=== PATIENT | female | born 1935 | race Caucasian/White ===

== ENCOUNTER → 2016-09-24 | Outpatient (CLI) | payer MEDICARE, MEDICAID ==
[~2016-09-24] MED LIST: ACET-2161 PO; AMLO10TA4 PO; ARIP15TA2; BUPR75TA8 PO; DOCU-168 PO; DONE10TA21 PO; ENAL10TA PO; FAMO1TAB31 PO CHEW; FENT1PAT66 TOP; FURO20TA4 PO; FURO40TA70 PO; GABA-305 PO; HYDR-3989 PO; HYDR1TAB82 PO; LOPE2TAB24 PO; LORA0.5T86 PO; MULT-806 PO; OMEP20CA81 PO; P-EP-93 PO; SERT-88 PO; TRAZ-170 PO; [UNRECOGNIZED DRUG - CODE] PO
== END ==
LOC: NEU 10:20
PROVIDERS: ATTEND Family Medicine Sports Medicine
DX: G62.89 Other specified polyneuropathies (principal)
CPT/HCPCS: 95886; 95910

== ENCOUNTER 2016-09-26 08:11 | Day surgery (SDC) | payer MEDICARE, MEDICAID ==
--- NOTE | 2016-09-25 12:38 | NUR ---
NN PT'S SON/DPOA REQUESTS THAT SOMEONE CALL HIM WITH THE RESULTS OF BIOPSIES TOMORROW. HIS NUMBER IS .
[~2016-09-26] VITALS: Ht 157.5 cm; Wt 74.5 kg
[2016-09-26] VITALS (15 sets, daily range): BP systolic 109–183; BP diastolic 51–74; PULSE 51–66; RESP 14–18; TEMP 98.3–98.4; O2SAT 92–95; Ht 157.5 cm; Wt 74.5 kg
[~2016-09-26 08:11] MED LIST changes: -ACET-2161 PO; -BUPR75TA8 PO; +CEFAZOLIN 1 GRAM INJECTION IV ONE; -FENT1PAT66 TOP; -FURO40TA70 PO; -HYDR-3989 PO; +LIDOCAINE 1% (10mg/ml) 2ml SDV INJ ONE; +LR 1,000 ML IV SCH; -P-EP-93 PO
--- OUTSIDE RECORDS SUMMARY | 2016-09-26 08:17 | XMS REPORT | Referral Summary ---
Author Author Via R[facility], [facility] [place] [facility] Address Unknown Phone Unavailable Encounter Date(s): 03/22/15 - 03/22/15 Via RACQUEL [facility]as [facility], [address] [place], [place] [address] Discharge Disposition: 01-Home or Self Care Attending Physician: Julian Bae MD Admitting Physician: Julian Bae MD Vital Signs No data available for this section Problem List No data available for this section Allergies, Adverse Reactions, Alerts No data available for this section Medications amLODIPine 10 mg oral tablet 1 tabs, Oral, Daily, # 30 tabs, 0 Refill(s) Start Date: 03/29/14 Status: Ordered Colace 100 mg oral capsule 1 caps, Oral, BID, as needed for constipation, # 20 caps, 0 Refill(s) Start Date: 03/29/14 Status: Ordered divalproex sodium 250 mg oral tablet, extended release 3 tabs, Oral, Daily, 0 Refill(s) Start Date: 03/29/14 Status: Ordered donepezil 10 mg oral tablet 1 tabs, Oral, Bedtime (once a day), # 30 tabs, 0 Refill(s) Start Date: 03/29/14 Status: Ordered Duragesic-50 transdermal film, extended release 1 patches, Topical, q72hr, Fax to [facility] [phone], # 10 patches, 0 Refill( s) Start Date: 08/15/15 Status: Ordered Elocon 0.1% topical cream 1 porsha, Topical, Daily, # 15 g, 1 Refill(s), Pharmacy: [facility] Start Date: 06/12/14 Status: Ordered enalapril 10 mg oral tablet 1 tabs, Oral, BID, 0 Refill(s) Start Date: 03/29/14 Status: Ordered furosemide 20 mg oral tablet 1 tabs, Oral, Daily, # 30 tabs, 0 Refill(s) Start Date: 03/29/14 Status: Ordered gabapentin 600 mg oral tablet 1 tabs, Oral, TID, # 90 tabs, 0 Refill(s) Start Date: 03/29/14 Status: Ordered Guaiatussin AC 10 mg-100 mg/5 mL oral syrup 5 mL, Oral, q4hr, as needed for cough, 0 Refill(s) Start Date: 03/29/14 Status: Ordered ibuprofen 200 mg, Oral, q4hr, as needed for pain, 2 tabs, 0 Refill(s) Start Date: 03/29/14 Status: Ordered LORazepam 0.5 mg oral tablet 0.5 mg 1 tabs, Oral, BID, May also take 1 tab [address] Schulte [phone], # 80 tabs, 0 Refill(s) Start Date: 08/01/15 Status: Ordered LORazepam 0.5 mg oral tablet 0.25 mg 0.5 tabs, Oral, BID, patient can also take 1 tab BID PRN joe [phone], # 60 tabs, 1 Refill(s) Start Date: 08/01/15 Status: Ordered Maalox Advanced Maximum Strength 30 mL, Oral, q4hr, prn, 0 Refill(s) Start Date: 03/29/14 Status: Ordered MiraLax oral powder for reconstitution 17 g, Oral, Daily, dissolve in water before taking, # 255 g, 0 Refill(s) Start Date: 03/29/14 Status: Ordered mirtazapine 15 mg oral tablet 1 tabs, Oral, Bedtime (once a day), # 30 tabs, 0 Refill(s) Start Date: 03/29/14 Status: Ordered multivitamin 1 tabs, Oral, Daily, 0 Refill(s) Start Date: 03/29/14 Status: Ordered Withee 5 mg-325 mg oral tablet 1 tabs, Oral, TID, fax to Joe, # 90 tabs, 0 Refill(s) Start Date: 03/27/15 Status: Ordered Withee 5 mg-325 mg oral tablet 1 tabs, Oral, TID, as needed for pain, JOE [phone], # 90 tabs, 0 Refill(s) Start Date: 08/01/15 Status: Ordered [place] 5 mg-325 mg oral tablet 1 tabs, Oral, TID, JOE, # 90 tabs, 0 Refill(s) Start Date: 06/25/15 Status: Ordered nystatin 100,000 units/g topical cream 1 porsha, Topical, BID, # 15 g, 0 Refill(s) Start Date: 03/29/14 Status: Ordered omeprazole 20 mg oral delayed release tablet 1 tabs, Oral, Daily, 0 Refill(s) Start Date: 03/29/14 Status: Ordered Refresh 1 drops, Eye-Both, QID, prn, 0 Refill(s) Start Date: 03/29/14 Status: Ordered sertraline 100 mg oral tablet 1 tabs, Oral, Daily, # 30 tabs, 0 Refill(s) Start Date: 03/29/14 Status: Ordered Tums 500 mg, Chewed, TID, prn, 0 Refill(s) Start Date: 03/29/14 Status: Ordered Results No data available for this section Immunizations No data available for this section Procedures Procedure Date Related Diagnosis Body Site Excision, malignant lesion including margins, 03/22/15 trunk, arms, or legs; excised diameter 0.6 to 1.0 cm.. Social History No data available for this section Assessment and Plan No data available for this section
--- OUTSIDE RECORDS SUMMARY | 2016-09-26 08:17 | XMS REPORT | Referral Summary ---
Author Author [facility], [facility] Address Unknown Phone Unavailable Encounter Date(s): 02/22/15 - 02/22/15 Via RACQUEL Canas [facility], [address] [place], [place] [address] Discharge Disposition: 01-Home or Self Care Attending [...] release 1 patches, Topical, q72hr, Fax to [facility] [phone], # 10 patches, 0 Refill( s) Start Date: 08/15/15 Status: Ordered Elocon 0.1% topical cream 1 porsha, Topical, Daily, # 15 g, 1 Refill(s), Pharmacy: [facility] Start Date: 06/12/14 Status: Ordered enalapril [...] tab [address] Schulte [phone], # 80 tabs, 0 Refill(s) Start Date: 08/01/15 Status: Ordered LORazepam 0.5 mg oral tablet 0.25 mg 0.5 tabs, Oral, BID, patient can also take 1 tab BID PRN joe [phone], # 60 tabs, 1 Refill(s) Start Date: [...] 0 Refill(s) Start Date: 03/29/14 Status: Ordered [place] 5 mg-325 mg oral tablet 1 tabs, Oral, TID, fax to Joe, # 90 tabs, 0 Refill(s) Start Date: 03/27/15 Status: Ordered [place] 5 mg-325 mg oral tablet 1 tabs, Oral, TID, as needed for pain, JOE [phone], # 90 tabs, 0 Refill(s) Start Date: 08/01/15 Status: Ordered [place] 5 mg-325 mg oral tablet 1 tabs, [...] No data available for this section Procedures No data available for this section Social History No data available for this section Assessment and Plan No data available for this section
--- OUTSIDE RECORDS SUMMARY | 2016-09-26 08:17 | XMS REPORT | Referral Summary ---
Author Author [facility], [facility] Organization [facility] Address Unknown Phone Unavailable Encounter Date(s): 04/26/15 - 04/26/15 Via RACQUEL Canas [facility], [address] [place], [place] [address] [place] Discharge Disposition: 01-Home or Self Care Attending [...] release 1 patches, Topical, q72hr, Fax to [facility] [phone], # 10 patches, 0 Refill( s) Start Date: 08/15/15 Status: Ordered Elocon 0.1% topical cream 1 porsha, Topical, Daily, # 15 g, 1 Refill(s), Pharmacy: [facility] Start Date: 06/12/14 Status: Ordered enalapril [...] tab [address] Schulte ph [phone], # 80 tabs, 0 Refill(s) Start Date: 08/01/15 Status: Ordered LORazepam 0.5 mg oral tablet 0.25 mg 0.5 tabs, Oral, BID, patient can also take 1 tab BID PRN joe [phone], # 60 tabs, 1 Refill(s) Start Date: [...] 0 Refill(s) Start Date: 03/29/14 Status: Ordered Forgan 5 mg-325 mg oral tablet 1 tabs, Oral, TID, fax to Joe, # 90 tabs, 0 Refill(s) Start Date: 03/27/15 Status: Ordered Forgan 5 mg-325 mg oral tablet 1 tabs, Oral, TID, as needed for pain, JOE [phone], # 90 tabs, 0 Refill(s) Start Date: 08/01/15 Status: Ordered Forgan 5 mg-325 mg oral tablet 1 tabs, [...]
--- OUTSIDE RECORDS SUMMARY | 2016-09-26 08:17 | XMS REPORT | Referral Summary ---
Author Author [facility]AC[facility]as [facility], [facility] Organization [facility] Address Unknown Phone Unavailable Encounter Date(s): 12/21/14 - 12/21/14 Via RACUQEL Canas [facility], Family [address] [place], [place] [address] Discharge Disposition: 01-Home or Self Care [...] release 1 patches, Topical, q72hr, Fax to [facility] [phone], # 10 patches, 0 Refill( s) Start Date: 06/13/15 Status: Ordered Elocon 0.1% topical cream 1 porsha, Topical, Daily, # 15 g, 1 Refill(s), Pharmacy: [facility] Start Date: 06/12/14 Status: Ordered [...] Status: Ordered LORazepam 0.5 mg oral tablet 1 tabs, Oral, BID, 0 Refill(s) Start Date: 03/29/14 Status: Ordered LORazepam 0.5 mg oral tablet 0.25 mg 0.5 tabs, Oral, BID, patient can also take 1 tab BID PRN, # 30 tabs, 0 Refill(s) Start Date: 06/04/15 Status: Ordered Maalox Advanced Maximum Strength 30 [...] 0 Refill(s) Start Date: 03/29/14 Status: Ordered [place] 5 mg-325 mg oral tablet 1 tabs, Oral, q6hr, as needed for pain, 0 Refill(s) Start Date: 03/29/14 Status: Ordered [place] 5 mg-325 mg oral tablet 1 tabs, Oral, TID, fax to Franca, # 90 tabs, 0 Refill(s) Start Date: 03/27/15 Status: Ordered [place] 5 mg-325 mg oral tablet 1 tabs, Oral, TID, GREENMADDIE, # 90 tabs, 0 Refill(s) Start Date: [...]
--- OUTSIDE RECORDS SUMMARY | 2016-09-26 08:17 | XMS REPORT | Continuity of Care Document ---
Demographics Preferred Language Unknown Marital Status Unknown Oriental Orthodox Affiliation Unknown Race Unknown Ethnic Group Unknown Author Author [facility] Organization [facility] Address Unknown Phone Unavailable Allergies Medications Problems Procedures Results Encounters ACCT No. Visit Date/Time Discharge Status Pt. Type Provider Facility Loc./Unit Complaint [id number] 05/26/2013 08:37:00 [facility] Unknown [id number] 05/12/2013 12:33:00 [facility] Unknown
[2016-09-26 08:42] LABS: ANION GAP 10 MEQ/L (5-15); BUN/CREATININE RATIO 24 RATIO (6-26); CALCIUM 9.1 MG/DL (8.4-10.2); CHLORIDE 104 MEQ/L (98-107); CO2 - CARBON DIOXIDE 27 MEQ/L (22-30); CREATININE 0.7 MG/DL (0.7-1.2); GLOMERULAR FILTRATION RATE 81; GLUCOSE 105 MG/DL (65-110); POTASSIUM 4.4 MEQ/L (3.6-5); SODIUM 141 MEQ/L (134-144)
[2016-09-26] MEDS ORDERED: P-EP-93 PO (09:02)
[2016-09-26] MEDS ORDERED: HYDR-3989 PO (09:02)
[2016-09-26] MEDS ORDERED: ACET-2161 PO (09:06)
[2016-09-26] MEDS ORDERED: BUPR75TA8 PO (09:08)
[2016-09-26] MEDS ORDERED: FENT1PAT66 TOP (09:11)
--- NOTE | 2016-09-26 09:35 | NUR ---
ANESTHESIA VISIT MARC CLAYTON CRNA CALLED PATIENT'S SON AND DPOA TO OBTAIN PRE-OP HISTORY PATIENT HAS DEMENTIA AND IS A POOR HISTORIAN.
--- NOTE | 2016-09-26 09:39 | ANESPREOP ---
Anesthesia Record Date and Time DATE: 09/26/16 TIME: 09:28 Pre-Op Diagnosis ulcerated lesions Proposed Surgical Procedure excesional bx of ulcerated lesions Allergies: Coded Allergies: No Known Allergies (Unverified , 10/14/14) Ht/Wt/BMI Height: 5 ' 2.00 " Weight: 74.500 kg BMI: 30.0 kg/m2 Vital Signs Date Time Temp Pulse Resp B/P Pulse Ox O2 Delivery O2 Flow Rate FiO2 09/26/16 08:15 98.4 61 18 110/55 92 Room Air Medications Inpatient Medications Current Medications Medications (Trade) Dose Ordered Sig/Jose Start Time Stop Time Status Last Admin Dose Admin Midazolam HCl VERSED 1-2 MG IV AT DIRECT... PRN PRN 09/26/16 07:00 Lactated Ringer's (Lactated Ringers) 1,000 ml @ 50 mls/hr Q20H 09/26/16 08:00 09/26/16 09:18 50 MLS/HR Acetaminophen (Acetaminophen Extra Strength) 500 Mg Tablet, 1-2 TAB PO PRN PRN for PAIN, (Reported) Last Taken: on Unknown Date & Time Amlodipine Besylate (Norvasc) 10 Mg Tablet, 10 MG PO DAILY, (Reported) Last Taken: on 09/25/16945 Bupropion HCl (Bupropion HCl) 75 Mg Tablet, 75 MG PO DAILY, (Reported) Last Taken: on 09/25/16945 Divalproex Sodium (Divalproex Sodium Er) 500 Mg Tab.er.24h, 750 MG PO DAILY, (Reported) Last Taken: on 09/25/161999 Docusate Sodium (Colace) 100 Mg Capsule, 1 CAP PO BID, (Reported) Last Taken: on Unknown Date & Time Donepezil Hcl (Aricept) 10 Mg Tablet, 10 MG PO HS, (Reported) Last Taken: on 09/25/161999 Enalapril Maleate (Vasotec) 10 Mg Tablet, 10 MG PO BID, (Reported) Last Taken: on 09/25/16945 Famotidine/Ca Carb/Mag Hydrox (Tums Dual Action Tablet Chew) 1 Each Tab.chew, 1 TAB PO CHEW TID, (Reported) Last Taken: on 09/25/16945 Fentanyl (Fentanyl 50 mcg/hr) 1 Each Patch.td72 , 1 PATCH TOP Q72H, (Reported) Last Taken: on 09/26/16 Furosemide (Furosemide) 20 Mg Tablet, 1 TAB PO DAILY, (Reported) Last Taken: on 09/25/16945 Gabapentin (Gabapentin) 600 Mg Tablet, 1 TAB PO TID, (Reported) Last Taken: on 09/25/16946 Hydrocodone/Apap (Lackey 5-325 Tablet) 5-325 Tablet, 1 TAB PO TID, (Reported) Last Taken: on 09/25/16 0700 Loratadine/Pseudoephedrine (Claritin-D 12 Hour Tablet) 1 Each Tab.er.12h, 1 TAB PO DAILY, (Reported) Last Taken: on 09/25/16946 Multivitamins (Multivitamin) 1 Tab Tablet, 1 TAB PO DAILY, (Reported) Last Taken: on 09/25/16946 Omeprazole (Prilosec) 20 Mg Capsule.dr, 20 MG PO DAILY, (Reported) Last Taken: on 09/25/16945 Sertraline Hcl (Zoloft) 100 Mg Tablet, 2 TAB PO DAILY, (Reported) Last Taken: on 09/25/16946 Trazodone HCl (Trazodone HCl) 50 Mg Tablet, 50 MG PO BID, (Reported) Take 1 tablet, by mouth, one time a day (at BEDTIME). Last Taken: on 09/25/16945 Currently on Beta Varun: No Medical/Surgical History Anesthesia PMH: Reports: *Hypertension (PER H&P), Arthritis (GENERALIZED PER H& P), Cancer (hx breast cancer), Depression, Other (dementia), Reflux (PER H&P), Seizures (possible ), Denies: *Diabetes, Sleep Apnea, Thyroid Disease Has pt. smoked today?: No Use Chewing Tobacco?: No Second Hand Exposure: No Substance Use Type: does not use Alcohol Intake: none Past Surgical History Orthopedic Surgeries: Yes - knee replacement (pt unable to state which knee) Abdominal Surgeries: Genitourinary Surgeries: Cardiac Surgeries: Endocrine Surgeries: Reproductive Surgeries: Neurological Surgeries: Ear Surgeries: Nose Surgeries: Throat Surgeries: Other Surgeries: Yes - knee replacement (pt unable to state which knee) Anesthesia Adverse Reactions: FOUND none Family Hx of Anesthesia Advers: none Hx of Motion Sickness: No Pertinent Findings Laboratory Tests 09/26/16 08:27 EKG Rhythm: Sinus Bradycardia Physical Exam Respiratory: Bilat breath sounds equal, Lungs clear Cardiovascular: FOUND Regular rate, rhythm, FOUND No murmur Airway Assessment Mallampati Score: III (overbite and missing teeth ) Neck Extension: Fair Overall Assessment: May Be Diff Intubation ASA: 2 Plan Anesthesia Plan: MAC (spoke with Lex SERRA about health history and anesthesia ) Discussion Discussed risks/options/alternatives of anesthesia and questions answered. Patient consents. Nursing pain assessment noted. Attestation Statement Prior to the delivery of any anesthetic medication, I examined the patient, developed the plan, obtained the patient's consent and discussed the risk and benefits of the procedure with the patient/guardian. LEX CLAYTON CRNA Sep 26, 2016 09:32
[2016-09-26] MEDS ORDERED: BUPIVACAINE 0.25%/EPI 1:200,000 30ml SDV ONE (09:42)
[2016-09-26] MEDS: MIDAZOLAM 2mg/2ml INJECTION IV PRN ×2 (12:01→12:07)
--- NOTE | 2016-09-26 12:30 | NUR ---
1156 DR. JACOBO TO PREOP AREA TO INTERVIEW AND MARC PT. IV ANTIBIOTIC STARTED AT [address] JACOBO. TIMEOUT PERFORMED BY SURGICAL TEAM AT 1200. SURGICAL SITE PREPPED AND DRAPED BY SADE JOHNSON RN,APPOINTMENT CLERK. .25%MARCAINE WITH EPI. 1:100,000 20CC INJECTED INTO SURGICAL SITE BY DR. JACOBO AT 1203. LESION EXCISED AT 1211 AND SENT TO LAB FOR PATHOLOGY LABELED FOLLOWS: [id number] 1. SUSPICIOUS SKIN LESION RIGHT LATERAL NECK WITH NEEDLE CEPHALAD. EXCISION SITE CLOSED WITH SUTURE AND DRESSED BY DR. JACOBO. NUMEROUS ACTINIC KERATOSIS APPEARING LESIONS ON FACE TREATED WITH CRYOTHERAPY BY DR. JACOBO. PROCEDURE ENDED AT 1225. PT. TOLERATED PROCEDURE WELL.
--- NOTE | 2016-09-26 12:46 | NUR ---
CLEAR MARGINS DR. JACOBO OUT TO NOTIFY MARGINS ARE CLEAR.
--- NOTE | 2016-09-26 13:34 | NUR ---
ATTEMPT AT REPORT ATTEMPT AT REPORT CALLED TO [facility] ( ) - NURSE PAGED TWICE AND LEFT NUMBER FOR HER TO CALL BACK.
--- NOTE | 2016-09-26 19:09 | OPNOTEF ---
DATE OF SERVICE 09/26/2016 SURGEON Antolin Rodriguez MD PREOPERATIVE DIAGNOSIS Suspicious skin lesion involving right lateral neck, numerous actinic keratotic-appearing lesions involving forehead and face. PROCEDURE Excisional biopsy of ulcerated lesion from right lateral neck with two-layer closure of 4.5 cm incision. Cryotherapy to actinic keratotic-appearing lesions involving the forehead and face x 7. ANESTHESIA IV sedation, local. BRIEF HISTORY/INDICATIONS Mrs. Marquez is an 81-year-old female who recently presented to my office a result of a suspicious skin lesion involving her right lateral neck. Upon physical examination she was found have an ulcerated lesion involving the right lateral neck that was about 2 cm in diameter. There was a surrounding area of erythema as well. Additionally, she had an ulcerated lesion that was fairly small involving the upper lip region. Furthermore, she had numerous actinic keratotic-appearing lesions upon her face. I did attempt to ablate the lesion upon her upper lip utilizing cryotherapy. The patient complained of a fair amount of discomfort and therefore this portion of the procedure was ablated. I had recommended to the patient's DPOA that we proceed in an operative setting under some sedation with excision of this larger ulcerated lesion involving the right lateral neck as well as go ahead and try to complete cryotherapy under some sedation. The patient presented today to undergo these procedures. For completeness please refer to notes included in the patient's chart. NARRATIVE OF PROCEDURE After informed consent was obtained the patient was placed on the table in a supine fashion. Right lateral neck was prepped and draped in sterile fashion. Formal time-out was then completed. 0.25% Marcaine was injected circumferentially around this ulcerated lesion involving the right lateral neck. An incision that was about 2.6-2.7 cm in width and about 4.5 cm in length was made encompassing this ulcerated lesion. Dissection was carried down into the deep subcuticular tissues and the lesion was excised in its entirety and passed off the table as a surgical specimen. A marking pen was placed along the cephalad aspect of the ellipse for pathologic orientation. Hemostasis was obtained within the wound with the use of electrocautery. This incision itself was then closed in a two-layer fashion. First, the deep subcutaneous/subcuticular tissue was reapproximated by placing a few simple sutures of 3-0 Vicryl. Skin itself was then closed in a running fashion with 4-0 Prolene. Next, several actinic keratotic lesions that were on the order about 5-8 mm in diameter were treated in a standard freeze/ thaw technique utilizing liquid nitrogen. Three lesions upon the forehead were treated, one lesion upon the right cheek, two lesions upon the left cheek region, and an additional area of concern involving the left episcopal region. The patient tolerated the procedure without difficulty. Pathology did return at a later time stating that the margins indeed were free of any malignancy. The patient is currently in stable condition and will be discharged from the facility shortly. CRISTY
== END 2016-09-26 13:54 | disposition home or self-care (01) ==
LOC: SCU 08:11
PROVIDERS: ATTEND Surgery
DX: C44.41 Basal cell carcinoma of skin of scalp and neck (principal); L57.0 Actinic keratosis; I10 Essential (primary) hypertension; K21.9 Gastro-esophageal reflux disease without esophagitis; F60.9 Personality disorder, unspecified; F32.9 Major depressive disorder, single episode, unspecified; F41.9 Anxiety disorder, unspecified; F03.90 Unspecified dementia, unspecified severity, without behavioral disturbance, psychotic disturbance, mood disturbance, and anxiety; Z79.899 Other long term (current) drug therapy
CPT/HCPCS: 11626; 12042; 17000; 17003; 36415; 80048; 88305; 88331; 88332; J0690; J2250; J7120

== ENCOUNTER → 2016-10-13 | Outpatient (CLI) | payer MEDICARE, MEDICAID ==
[~2016-10-13] MED LIST changes: +ACET-2161 PO; -ARIP15TA2; +BUPR75TA8 PO; -CEFAZOLIN 1 GRAM INJECTION IV ONE; +FENT1PAT66 TOP; +HYDR-3989 PO; -HYDR1TAB82 PO; -LIDOCAINE 1% (10mg/ml) 2ml SDV INJ ONE; -LOPE2TAB24 PO; -LORA0.5T86 PO; -LR 1,000 ML IV SCH; +P-EP-93 PO
[2016-10-13 06:12] LABS: BASOPHILS % (AUTO) 0.4 % (0-2); EOSINOPHILS # (AUTO) 0.2 T/MM3 (0-0.5); EOSINOPHILS % (AUTO) 4.2 % (0-4); HCT - HEMATOCRIT 39.3 % (36-46); HGB - HEMOGLOBIN 12.8 GM/DL (12-16); IMMATURE GRANULOCYTE # (AUTO) 0.02 T/MM3 (0.00-0.03); IMMATURE GRANULOCYTE % (AUTO) 0.4 % (0.0-0.5); LYMPHOCYTES # (AUTO) 1.2 T/MM3 (1-4.8); LYMPHOCYTES % (AUTO) 25.8 % (23-45); MEAN CORPUSCULAR HGB 29.8 UUG (26-34); MEAN CORPUSCULAR HGB CONC(MCHC 32.6 GM/DL (31-37); MEAN CORPUSCULAR VOLUME 91.4 UM3 (80-100); MEAN PLATELET VOLUME 10.2 UM3 (9.4-12.4); MONOCYTES # (AUTO) 0.7 T/MM3 (0-0.8); MONOCYTES % (AUTO) 13.9 % (0-9.0); NEUTROPHILS #(AUTO)-ABSOLUTE 2.6 T/MM3 (1.8-7.7); NEUTROPHILS % (AUTO) 55.3 % (33-66); WBC - WHITE BLOOD COUNT 4.8 T/MM3 (4.5-11.0)
[2016-10-13 06:20] LABS: ALBUMIN 3.2 G/DL (3.5-5.0); ALBUMIN/GLOBULIN RATIO 1.1 RATIO (1.1-2.2); ALKALINE PHOSPHATASE 57 U/L (38-126); ALT (SGPT) 21 U/L (9-52); ANION GAP 11 MEQ/L (5-15); AST (SGOT) 33 U/L (14-36); BUN/CREATININE RATIO 17 RATIO (6-26); CALCIUM 8.5 MG/DL (8.4-10.2); CHLORIDE 102 MEQ/L (98-107); CO2 - CARBON DIOXIDE 28 MEQ/L (22-30); CREATININE 0.6 MG/DL (0.7-1.2); GLOMERULAR FILTRATION RATE 96; GLUCOSE 87 MG/DL (65-110); SODIUM 141 MEQ/L (134-144)
== END ==
LOC: LABNH.BH 00:25
PROVIDERS: ATTEND Family Medicine
DX: I10 Essential (primary) hypertension (principal); R63.0 Anorexia
CPT/HCPCS: 36415; 80053; 85025; P9604